=== PATIENT | female | born 1980 | race Caucasian/White ===

== ENCOUNTER 2023-09-03 13:31 | Outpatient (OUT) | payer OTHER, SELFPAY ==
--- NOTE | 2023-09-03 13:36 | MM_ITS ---
Patient Name: SONJA SHAFER MR#: [id number] : 1980 Exam Date: 09/03/2023 Ordering Doctor: KAHLIL Reina RADIOLOGY REPORT PROCEDURE: MM TOMOSYNTHESIS DIAGNOSTIC BI, 09/03/2023, 13:46 US BREAST RT LIMITED, 09/03/2023, 14:22 COMPARISON: None. INDICATIONS: Right Breast Mass N63.10 Calculator Name NCI Breast Cancer Risk Assessment Tool 5 Year Breast Cancer Risk Not Reported. Lifetime Breast Cancer Risk Not Reported. Personal Breast Cancer No Personal Ovarian Cancer No Treatments None Family Cancers None LOCATION: [facility] BREAST COMPOSITION: Heterogeneously dense,which may obscure small masses. FINDINGS: DIAGNOSTIC CATEGORY 2--BENIGN FINDING: The breasts are medium in size. RIGHT BREAST: No significant suspicious finding. Schroeder marker upper outer quadrant in the axillary tail/posterior breast. No corresponding mammographic abnormality. Ultrasound demonstrates normal fibroglandular tissue with no focal mass. Further evaluation should be based on clinical and physical exam LEFT BREAST: No significant suspicious finding. RECOMMENDATIONS: ROUTINE MAMMOGRAM AND CLINICAL EVALUATION IN 12 MONTHS. PLEASE NOTE: A NORMAL MAMMOGRAM DOES NOT EXCLUDE THE POSSIBILITY OF BREAST CANCER. A CLINICALLY SUSPICIOUS PALPABLE LUMP SHOULD BE BIOPSIED. Dictated by: Cb Silva MD on 09/03/2023 at 14:39 Approved by: Cb Silva MD on 09/03/2023 at 14:42
--- NOTE | 2023-09-03 13:51 | US_ITS ---
Patient Name: SONJA SHAFER MR#: [id number] : 1980 Exam Date: 09/03/2023 Ordering Doctor: KAHLIL Reina RADIOLOGY REPORT PROCEDURE: MM TOMOSYNTHESIS DIAGNOSTIC BI, 09/03/2023, 13:46 US BREAST RT LIMITED, 09/03/2023, 14:22 COMPARISON: None. INDICATIONS: Right Breast Mass N63.10 Calculator Name NCI Breast Cancer Risk Assessment Tool 5 Year Breast Cancer Risk Not Reported. Lifetime Breast Cancer Risk Not Reported. Personal Breast Cancer No Personal Ovarian Cancer No Treatments None Family Cancers None LOCATION: [facility] BREAST COMPOSITION: Heterogeneously dense,which may obscure small masses. FINDINGS: DIAGNOSTIC CATEGORY 2--BENIGN FINDING: The breasts are medium in size. RIGHT BREAST: No significant suspicious finding. Champion marker upper outer quadrant in the axillary tail/posterior breast. No corresponding mammographic abnormality. Ultrasound demonstrates normal fibroglandular tissue with no focal mass. Further evaluation should be based on clinical and physical exam LEFT BREAST: No significant suspicious finding. RECOMMENDATIONS: ROUTINE MAMMOGRAM AND CLINICAL EVALUATION IN 12 MONTHS. PLEASE NOTE: A NORMAL MAMMOGRAM DOES NOT EXCLUDE THE POSSIBILITY OF BREAST CANCER. A CLINICALLY SUSPICIOUS PALPABLE LUMP SHOULD BE BIOPSIED. Dictated by: Cb Silva MD on 09/03/2023 at 14:39 Approved by: Cb Silva MD on 09/03/2023 at 14:42
== END 2023-09-03 13:32 | disposition home or self-care (01) ==
LOC: MAMMO 13:32
PROVIDERS: PCP Family Medicine
DX: N63.10 Unspecified lump in the right breast, unspecified quadrant (principal)
CPT/HCPCS: 76642; 77066; G0279

== ENCOUNTER 2023-11-25 09:10 | Emergency (ER) | payer OTHER, SELFPAY ==
[2023-11-25 09:12] VITALS: BP 148/93; PULSE 72; RESP 18; TEMP 36.8; O2SAT 98; BMI 23.5
--- OUTSIDE RECORDS SUMMARY | 2023-11-25 09:27 | XMS_ITS | CCD ---
Author Name Unknown Address Pending sale to [facility] [address] [place] [id number] Organization [facility] Results Test Name Value Interpretation Reference Range Facil ity XR tibia fibula LT 2V*on XR tibia fibula LT 2V* [facility] [place] [address] [place] [address] XRay Report Signed Patient: Ashlee Carter MR#: [id number] : 1980 Acct:[id number] Age/Sex: 41 / F ADM Date: 02/03/21 Loc: [facility]DUCLY Room: Type: [facility] Attending Dr: Cierra REID Ordering Provider: CIERRA ALONSO Date of Service: 02/03/21 XR/XR tibia fibula LT 2V*: Injury of left bermudez, initial encounter Copies to: CIERRA ALONSO 2 views LEFTtibia and fibula HISTORY: LEFT bermudez injury COMPARISON: None Pretibial soft tissue swelling is present. No radiodense foreign body. No fracture. XR/XR tibia fibula LT 2V* IMPRESSION: No acute bony findings. Impression dictated by: Jose Antonio Sampson M.D.02/03/2021 1:43 PM Dictation Location: [place] [address] Transcribed By: [facility] 02/03/21 1343 Dictated By: Jose Antonio Sampson DO 02/03/21 1340 Signed By: 02/03/21 1343 [facility] Summary Purpose Family History No Family History Records Found Advance Directives No Advanced Directives Records Found Additional Source Comments INFORMATION SOURCE (unrecogn ized section and content) DATE CREATED AUTHOR 11/14/2021 [facility] FOR RECORDS PERTAINING TO PATIENTS WHO ARE OR HAVE BEEN ENROLLED IN A CHEMICAL DEPENDENCY/SUBSTANCEABUSE PROGRAM, SOME INFORMATION MAY BE OMITTED. This clinical summary was aggregated from multiple sources. Caution should be exercised in using it in the provision of clinical care. This summary normalizes information from multiple sources, and as a consequence, information in this document may materially change the coding, format and clinical context of patient data. In addition, data may be omitted in some cases. CLINICAL DECISIONS SHOULD BE BASED ON THE PRIMARY CLINICAL RECORDS. [facility]. provides no warranty or guarantee of the accuracy or completeness of information in this document.
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
== END 2023-11-25 09:47 | disposition home or self-care (01) ==
PROVIDERS: Emergency Provider Emergency Medicine; PCP Family Medicine
DX: S09.8XXA Other specified injuries of head, initial encounter (principal); G50.1 Atypical facial pain; W20.8XXA Other cause of strike by thrown, projected or falling object, initial encounter
CPT/HCPCS: 99281